=== PATIENT | female | born 2000 | race Caucasian/White ===

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

== ENCOUNTER 2022-04-09 22:12 | Inpatient (IN) | payer OTHER ==
[~2022-04-09] VITALS: Ht 160 cm; Wt 54.9 kg
[2022-04-09 22:12] VITALS: BP 122/77
--- NOTE | 2022-04-09 22:25 | NUR ---
TO BED # 5 AMBULATORY , BIBA WITH C/O VAG BLEEDING.
--- NOTE | 2022-04-09 22:30 | NUR ---
UA COLLECTED AND SENT TO LAB
--- NOTE | 2022-04-09 22:30 | NUR ---
21 Y/O F PRESENTS WITH VAGINAL BLEEDING. PT DENIES PAIN, NVD. SKIN INTACT, A&OX4. PT STATED SHE DID HAVE AN 03/05/2022, AND HAS INTERMITTENT BLEEDING SINCE. PT ALSO STATED SHE HAD EPISODE OF BLEEDING PROFUSELY AT THE GYM TODAY. PMH-ANEMIA, SMALL CYST, ASTHMA NKA
--- NOTE | 2022-04-09 22:50 | NUR ---
DR. ROSAS AT BEDSIDE
[2022-04-09 23:16] LABS: BASOPHILS % (AUTO) 0.4 % (0.0-2.0); EOSINOPHILS # (AUTO) 0.1 K/uL (0-0.4); HEMATOCRIT 32.6 % (36-48); HEMOGLOBIN 10.7 g/dL (12.0-16.0); LYMPHOCYTES # (AUTO) 1.3 K/uL (2.5-16.5); LYMPHOCYTES % (AUTO) 19.1 % (20.5-51.1); MEAN CORPUSCULAR HEMOGLOBIN 29 pg (27-31); MEAN CORPUSCULAR HGB CONC 33 g/dL (33-37); MEAN CORPUSCULAR VOLUME 86.5 fL (80-94); MONOCYTES # (AUTO) 0.5 K/uL (0.8-1.0); MONOCYTES % (AUTO) 7.3 % (1.7-9.3); NEUTROPHILS % (AUTO) 72.2 % (42.2-75.2); PLATELET COUNT (AUTO) 280 K/uL (140-450); RED BLOOD CELL COUNT(AUTO) 3.77 MIL/uL (4.20-5.40); RED CELL DISTRIBUTION WIDTH 12.2 % (11.6-13.7); WHITE BLOOD COUNT (AUTO) 6.9 K/uL (4.5-11.0)
[2022-04-09 23:37] LABS: ALBUMIN 4.2 g/dL (3.4-5.0); ANION GAP 10.4 (8-16); CARBON DIOXIDE 26.4 mmol/L (21-32); CREATININE 0.7 mg/dL (0.6-1.3); POTASSIUM 3.8 mmol/L (3.5-5.1); TOTAL BILIRUBIN 0.3 mg/dL (0.0-1.0)
--- NOTE | 2022-04-09 23:46 | NUR ---
US AT BEDSIDE
--- NOTE | 2022-04-10 01:25 | NUR ---
PT RESTING, ON OWNER PROFESSIONAL ENGINEER. RESPIRATIONS EVEN AND UNLABORED
--- NOTE | 2022-04-10 02:08 | NUR ---
DR ROSAS AT BEDSIDE EXPLAINING TO PT ABOUT ADMISSION .
--- NOTE | 2022-04-10 02:24 | NUR ---
BELONGINGS LIST DONE.
--- NOTE | 2022-04-10 02:28 | NUR ---
COVID SWAB COLLECTED
--- NOTE | 2022-04-10 02:30 | NUR ---
PT AWAITING ADMISSION
[2022-04-10] MEDS ORDERED: ACETAMINOPHEN 325 MG TAB PO PRN (02:35)
[2022-04-10] MEDS ORDERED: HYDROcodone/APAP 5/325 MG 1 TAB TAB PO PRN (02:35)
[2022-04-10] MEDS ORDERED: MORPHINE SULFATE 4 MG/ML SYR IVP PRN (02:35)
[2022-04-10] MEDS ORDERED: LACTATED RINGERS 1,000 ML IV SCH (02:35)
[2022-04-10] MEDS ORDERED: ONDANSETRON 4 MG/2 ML VIAL IVP PRN (02:35)
[2022-04-10] MEDS ORDERED: [UNRECOGNIZED DRUG - CODE] PO (03:49)
--- NOTE | 2022-04-10 06:00 | NUR ---
FLUIDS STOPPED IV SITE L AC DC DUE TO INFILTRATION, WARM PACK TO SITE AND PT TOLERATED PACK WELL. SECOND IV SITE 22G R WRIST PLACED, FLUIDS RESTARTED.
--- NOTE | 2022-04-10 06:37 | NUR ---
PT IS NPO
--- NOTE | 2022-04-10 06:43 | NUR ---
PT AMBULATORY TO RESTROOM
--- NOTE | 2022-04-10 06:48 | NUR ---
PT BACK TO ROOM, BACK ON MONITOR AND CONTINUING FLUIDS
--- NOTE | 2022-04-10 07:30 | NUR ---
REPORT RECEIVED FROM HERRERA CASON. ASSUMED CARE AT THIS TIME
--- NOTE | 2022-04-10 07:50 | NUR ---
RECEIVED PT FROM ER VIA GUILHERME. BEDSIDE REPORT RECEIVED BY ER NURSE. INITIAL ASSESSMENT DONE. RESP. EVEN AND UNLABORED. SKIN INTACT. IVF SITE INTACT. IVF INFUSING WELL. NO C/O PAIN OR DISCOMFORT. CALL LIGHT KEPT WITHIN REACH. REMAINS STABLE.
--- NOTE | 2022-04-10 07:50 | NUR ---
Patient's Plan of Care was discussed and reviewed with AUTOMOBILE MECHANIC ASSISTANT: VEY JOHNSON
[2022-04-10 08:00] VITALS: BP 113/74
--- NOTE | 2022-04-10 08:00 | NUR ---
Patient will be admitted to care of MD GAYTAN. Admited to M/S. Will go to room 106A. Belongings list completed. Report to EVY CASTELLANO.
--- NOTE | 2022-04-10 11:25 | NUR ---
SEEN BY DR. STERLING WITH NEW RECOMMENDATION, JULY D/C TODAY, FOLLOW UP IN HIS OFFICE IN 1 WEEK.
--- NOTE | 2022-04-10 12:08 | NUR ---
RECEIVED NEW ORDER BY DR. GAYTAN MAY UPGRADE DIET TO REGULAR.
--- NOTE | 2022-04-10 13:05 | NUR ---
SEEN BY DR. GAYTAN WITH NEW ORDER MAY DISCHARGE TODAY. ORDER NOTED AND CARRIED OUT.
[2022-04-10 14:12] VITALS: BP 105/60
[2022-04-10] MEDS ORDERED: ACET-2619 PO (14:25)
--- NOTE | 2022-04-10 15:05 | NUR ---
PT LEFT, DISCHARGE TO HOME, ACCOMPANIED BY HER MOTHER PER WHEELCHAIR VIA PRIVATE CAR. ALERT AND ORIENTED. ID AND IV REMOVED. DISCHARGE PAPER WORKS SIGN AND GIVEN. PERSONAL BELONGINGS TAKEN BY PT. REMAINS STABLE.
== END 2022-04-10 15:27 | disposition home or self-care (01) | DRG 532 ==
LOC: MED 22:12 → MMU 04-10 02:33 → MTU 04-10 04:54
PROVIDERS: ADMIT Internal Medicine; ATTEND Internal Medicine
DX: N93.8 Other specified abnormal uterine and vaginal bleeding (principal); J45.909 Unspecified asthma, uncomplicated; Z20.822 Contact with and (suspected) exposure to COVID-19
CPT/HCPCS: 36415; 76830; 80053; 85025; 96360; 96361; 99285; J7120; Q0092

== ENCOUNTER 2023-03-02 21:20 | Observation (INO) | payer OTHER ==
[~2023-03-02 21:20] MED LIST: ACET-2619 PO; [UNRECOGNIZED DRUG - CODE] PO
== END 2023-03-02 22:37 | disposition home or self-care (01) ==
LOC: MLD 21:20 → UNDOADMIN 21:20 → UNDODISIN 22:15
PROVIDERS: ADMIT Obstetrics & Gynecology; ATTEND Obstetrics & Gynecology
DX: O48.0 Post-term pregnancy (principal); Z3A.40 40 weeks gestation of pregnancy
CPT/HCPCS: 59025; G0378; G0379